=== PATIENT | female | born 1990 | race Caucasian/White ===

== ENCOUNTER 2017-05-13 01:57 | Inpatient (IN) ==
[2017-05-13] MEDS ORDERED: ONDANSETRON 4 MG/2 ML VIAL IV PRN (02:14)
[2017-05-13] MEDS ORDERED: MEPERIDINE 50 MG/1 ML VIAL IM PRN (02:14)
[2017-05-13] MEDS ORDERED: BUTORPHANOL 2 MG/ML VIAL IV PRN (02:14)
[2017-05-13] MEDS ORDERED: CITRIC ACID/SODIUM CITRATE 30 ML UDCUP PO ONE (02:16)
[2017-05-13] MEDS ORDERED: ePHEDrine 50 MG/ML AMP IV PRN (02:18)
[2017-05-13] MEDS ORDERED: OXYTOCIN/LR 20 UNIT/1,000 ML BAG IV ONE ×2 (02:19→09:11)
[2017-05-13] MEDS ORDERED: AMPICILLIN INJ 2,000 MG in SODIUM CHLORIDE 0.9% 50 ML IV ONE (02:20)
[2017-05-13] MEDS ORDERED: FAMOTIDINE 20 MG/2 ML VIAL IV SCH (02:30)
[2017-05-13] MEDS: LACTATED RINGERS 1,000 ML IV SCH ×3 (02:39→04:12)
[2017-05-13 03:26] LABS: Basophils % 0.3 % (0.0-0.8); Eosinophils # 0.1 10*3/uL (0.0-0.87); Eosinophils % 0.6 % (0.00-10.9); Hemoglobin 12.1 GM/DL (12.0-16.0); Immature Granulocytes % 1.1 %; Immature Granulocytes Absolute 0.12 #; Lymphocytes # 1.6 10*3/uL (1.4-4.0); Lymphocytes % 14.8 % (21.3-54.2); Mean Corpuscular HGB Conc 35.6 GM/DL (32-36); Mean Corpuscular Hemoglobin 33 PG (27-34); Mean Corpuscular Volume 92.9 FL (87-102); Mean Platelet Volume 10.8 FL (9.6-12.0); Monocytes # 0.8 10*3/uL (0.11-0.8); Monocytes % 7.3 % (1.7-12.7); Neutrophils # 8.4 10*3/uL (1.4-7.4); Neutrophils % 75.9 % (38.7-73.9); Platelet Count 156 T/CUMM (130-400); Red Blood Count 3.66 MC/CUMM (3.8-5.5); Red Cell Distribution Width 12.9 % (9.3-17.3)
[2017-05-13 03:41] LABS: Albumin 2.5 G/DL (3.4-5.0); Bilirubin,Total 0.5 MG/DL (0.2-1.0); Calcium 8.2 MG/DL (8.5-10.1); Osmolality,Calculated 271.7 MOS/KG (273-304); Potassium 3.6 MMOL/L (3.5-5.1); Total Protein 5.4 G/DL (6.4-8.3)
[2017-05-13] MEDS ORDERED: miSOPROStol 200 MCG TABLET ONE (04:09)
[2017-05-13] MEDS ORDERED: LIDOCAINE 1% 50 ML VIAL ONE (04:09)
[2017-05-13] MEDS ORDERED: METHYLERGONOVINE 0.2 MG/1 ML AMP ONE (04:10)
[2017-05-13] MEDS ORDERED: oxyCODONE/ACETAMINOPHEN 5-325 MG TABLET PO PRN ×2 (05:45)
[2017-05-13] MEDS ORDERED: BENZOCAINE 20%/MENTHOL 0.5% SPRAY 56 GM CAN TOP PRN (05:45)
[2017-05-13] MEDS ORDERED: LANOLIN 50% CREAM 0.3 OZ TUBE TOP PRN (05:45)
[2017-05-13] MEDS ORDERED: ACETAMINOPHEN 325 MG TABLET PO PRN (05:45)
[2017-05-13] MEDS ORDERED: MEASLES/MUMPS/RUBELLA VACCINE 0.5 ML VIAL SUBCUT ONE (05:45)
[2017-05-13] MEDS ORDERED: HYDROCORTISONE 2.5% RECTAL CREAM 30 GM TUBE TOP PRN (05:45)
[2017-05-13] MEDS ORDERED: DIPH/TET/ACEL PERT BOOSTER VACCINE 0.5 ML VIAL IM ONE (05:45)
[2017-05-13] MEDS ORDERED: BISACODYL 10 MG SUPP RECTAL PRN (05:45)
[2017-05-13] MEDS ORDERED: RHO(D) IMMUNE GLOBULIN 300 MCG SYRINGE IM ONE (05:45)
[2017-05-13] MEDS ORDERED: WITCH HAZEL PADS 100/JAR TOP PRN (05:45)
[2017-05-13] MEDS ORDERED: AMPICILLIN INJ 2,000 MG in SODIUM CHLORIDE 0.9% 50 ML IV SCH (08:30)
[2017-05-13] MEDS: IBUPROFEN 800 MG TABLET PO PRN (15:49)
[2017-05-13] MEDS: DOCUSATE SODIUM 100 MG CAPSULE PO SCH (20:20)
[2017-05-13] MEDS ORDERED: MAGNESIUM HYDROXIDE SUSP 30 ML UDCUP PO PRN (20:23)
[2017-05-14 06:48] LABS: Basophils % 0.2 % (0.0-0.8); Eosinophils # 0.1 10*3/uL (0.0-0.87); Eosinophils % 1.3 % (0.00-10.9); Hematocrit 34.3 VOL% (35.7-47.0); Hemoglobin 11.8 GM/DL (12.0-16.0); Immature Granulocytes % 1.5 %; Immature Granulocytes Absolute 0.15 #; Lymphocytes % 19.2 % (21.3-54.2); Mean Corpuscular HGB Conc 34.4 GM/DL (32-36); Mean Corpuscular Hemoglobin 33 PG (27-34); Mean Corpuscular Volume 94.8 FL (87-102); Mean Platelet Volume 10.4 FL (9.6-12.0); Monocytes # 0.8 10*3/uL (0.11-0.8); Monocytes % 8.1 % (1.7-12.7); Neutrophils # 7.1 10*3/uL (1.4-7.4); Neutrophils % 69.7 % (38.7-73.9); Platelet Count 151 T/CUMM (130-400); Red Blood Count 3.62 MC/CUMM (3.8-5.5); Red Cell Distribution Width 13.1 % (9.3-17.3); White Blood Count 10.2 T/CUMM (4-12)
[2017-05-14] MEDS ORDERED: DIBUCAINE 1% OINT 28 GM TUBE TOP PRN (08:21)
[2017-05-14] MEDS: DOCUSATE SODIUM 100 MG CAPSULE PO SCH ×3 (09:16→22:01)
[2017-05-14] MEDS: LACTATED RINGERS 1,000 ML IV SCH (22:01)
[2017-05-14] MEDS: fentaNYL 2 MCG/ROPIV 0.2% EPID 150 ML EPIDURAL SCH ×2 (22:02)
[2017-05-14] MEDS: IBUPROFEN 800 MG TABLET PO PRN (23:59)
[2017-05-15] MEDS: fentaNYL 2 MCG/ROPIV 0.2% EPID 150 ML EPIDURAL SCH (00:02)
[2017-05-15] MEDS: LACTATED RINGERS 1,000 ML IV SCH (04:51)
[2017-05-15 08:50] VITALS: BP 154/73
[2017-05-15] MEDS: DOCUSATE SODIUM 100 MG CAPSULE PO SCH (10:05)
== END 2017-05-15 12:30 | disposition home or self-care (01) | DRG 775 ==
LOC: N.LDOUT 01:57 → N.LD 02:00 → N.OB 10:16
PROVIDERS: ADMIT Obstetrics & Gynecology; ATTEND Obstetrics & Gynecology

== ENCOUNTER 2019-07-06 23:59 | Inpatient (IN) ==
[2019-07-07] MEDS ORDERED: BUTORPHANOL 1 MG/ML VIAL IV PRN (00:19)
[2019-07-07] MEDS ORDERED: ONDANSETRON 4 MG/2 ML VIAL IV PRN ×2 (00:19→08:48)
[2019-07-07] MEDS ORDERED: MEPERIDINE 25 MG/1 ML VIAL IV PRN (00:19)
[2019-07-07] MEDS ORDERED: LACTATED RINGERS 500 ML IV ONE (00:20)
[2019-07-07] MEDS ORDERED: PROMETHAZINE 25 MG/1 ML VIAL IM ONE (00:20)
[2019-07-07] MEDS ORDERED: LACTATED RINGERS 1,000 ML IV ONE (00:20)
[2019-07-07] MEDS ORDERED: CITRIC ACID/SODIUM CITRATE 30 ML UDCUP PO ONE (00:20)
[2019-07-07] MEDS ORDERED: hydrOXYzine HCL 25 MG/1 ML VIAL IM PRN (00:20)
[2019-07-07] MEDS ORDERED: FAMOTIDINE 20 MG/2 ML VIAL IV ONE (00:20)
[2019-07-07] MEDS ORDERED: diphenhydrAMINE 50 MG/1 ML VIAL IV PRN ×2 (00:20)
[2019-07-07] MEDS ORDERED: NALOXONE 0.4 MG/ML VIAL IV PRN (00:20)
[2019-07-07] MEDS ORDERED: LACTATED RINGERS 1,000 ML IV SCH ×2 (00:30)
[2019-07-07] MEDS ORDERED: fentaNYL 2 MCG/ROPIV 0.2% EPID 100 ML EPIDURAL SCH (00:30)
[2019-07-07] MEDS ORDERED: INFLUENZA VIRUS VACCINE 0.5 ML SYRINGE IM ONE (00:44)
[2019-07-07 01:08] LABS: Basophils % 0.4 % (0.0-0.8); Eosinophils # 0.1 10*3/uL (0.0-0.87); Eosinophils % 1.1 % (0.00-10.9); Hematocrit 36.8 VOL% (35.7-47.0); Hemoglobin 12.5 GM/DL (12.0-16.0); Immature Granulocytes Absolute 0.22 #; Lymphocytes # 2.7 10*3/uL (1.4-4.0); Lymphocytes % 24.3 % (21.3-54.2); Mean Corpuscular Volume 95.8 FL (87-102); Monocytes % 7.8 % (1.7-12.7); Neutrophils % 64.4 % (38.7-73.9); Platelet Count 188 T/CUMM (130-400); Red Blood Count 3.84 MC/CUMM (3.8-5.5); Red Cell Distribution Width 13.1 % (9.3-17.3)
[2019-07-07] MEDS: LACTATED RINGERS 1,000 ML IV SCH ×2 (01:38→03:33)
[2019-07-07 03:19] LABS: Apearance,Urine CLEAR (Clear); Bilirubin,Urine Negative (Negative); Blood, Urine Negative (Negative); Glucose,Urine (UA) Negative (Negative); Ketones,Urine 20 mg/dL (Negative); Mucus,Urine Occasional /LPF (Occasional); Nitrite,Urine Negative (Negative); Protein,Urine Negative; RBC,Urine 4 /HPF (0-4); Squamous Epithelial Cell,Urine Occasional /HPF (0-10); Urine Color Yellow (Yellow); WBC,Urine 1 /HPF (0-6)
[2019-07-07] MEDS: ePHEDrine 50 MG/ML AMP IV PRN ×3 (03:29→03:43)
[2019-07-07] MEDS: OXYTOCIN/LR 20 UNIT/1,000 ML BAG IV SCH ×2 (07:02→12:12)
[2019-07-07] MEDS ORDERED: LIDOCAINE 1% 50 ML VIAL ONE (08:25)
[2019-07-07] MEDS ORDERED: METHYLERGONOVINE 0.2 MG/1 ML AMP ONE (08:26)
[2019-07-07] MEDS ORDERED: miSOPROStoL 200 MCG TABLET ONE (08:26)
[2019-07-07] MEDS ORDERED: METHYLERGONOVINE 0.2 MG/1 ML AMP IM ONE (08:46)
[2019-07-07] MEDS ORDERED: LANOLIN 50% CREAM 0.3 OZ TUBE TOP PRN (08:48)
[2019-07-07] MEDS ORDERED: BISACODYL 10 MG SUPP RECTAL PRN (08:48)
[2019-07-07] MEDS ORDERED: OXYTOCIN/LR 20 UNIT/1,000 ML BAG IV ONE (08:48)
[2019-07-07] MEDS ORDERED: BENZOCAINE 20%/MENTHOL 0.5% SPRAY 56 GM CAN TOP PRN (08:48)
[2019-07-07] MEDS ORDERED: HYDROCORTISONE 2.5% RECTAL CREAM 30 GM TUBE TOP PRN (08:48)
[2019-07-07] MEDS ORDERED: ACETAMINOPHEN 325 MG TABLET PO PRN (08:48)
[2019-07-07] MEDS ORDERED: oxyCODONE/ACETAMINOPHEN 5-325 MG TABLET PO PRN ×2 (08:48)
[2019-07-07] MEDS ORDERED: WITCH HAZEL PADS 100/JAR TOP PRN (08:48)
[2019-07-07] MEDS ORDERED: MEASLES/MUMPS/RUBELLA VACCINE 0.5 ML VIAL SUBCUT ONE (08:48)
[2019-07-07] MEDS ORDERED: RHO(D) IMMUNE GLOBULIN 300 MCG SYRINGE IM ONE (08:48)
[2019-07-07] MEDS ORDERED: DIPH/TET/ACEL PERT BOOSTER VACCINE 0.5 ML VIAL IM ONE (08:48)
[2019-07-07] MEDS: IBUPROFEN 800 MG TABLET PO PRN ×2 (10:42→19:26)
[2019-07-07] MEDS ORDERED: ONDANSETRON 4 MG TABLET PO PRN (19:24)
[2019-07-07] MEDS: DOCUSATE SODIUM 100 MG CAPSULE PO SCH ×2 (19:27→21:02)
[2019-07-08] MEDS: IBUPROFEN 800 MG TABLET PO PRN ×2 (05:09→19:58)
[2019-07-08 06:39] LABS: Basophils % 0.4 % (0.0-0.8); Eosinophils # 0.2 10*3/uL (0.0-0.87); Eosinophils % 1.7 % (0.00-10.9); Hematocrit 30.5 VOL% (35.7-47.0); Hemoglobin 10.2 GM/DL (12.0-16.0); Immature Granulocytes % 1.8 %; Immature Granulocytes Absolute 0.19 #; Lymphocytes # 2.3 10*3/uL (1.4-4.0); Lymphocytes % 22.3 % (21.3-54.2); Mean Corpuscular HGB Conc 33.4 GM/DL (32-36); Mean Corpuscular Volume 98.4 FL (87-102); Mean Platelet Volume 10.4 FL (9.6-12.0); Monocytes % 7.7 % (1.7-12.7); Neutrophils % 66.1 % (38.7-73.9); Platelet Count 138 T/CUMM (130-400); Red Cell Distribution Width 13.2 % (9.3-17.3); White Blood Count 10.4 T/CUMM (4-12)
[2019-07-08] MEDS: DOCUSATE SODIUM 100 MG CAPSULE PO SCH ×3 (08:44→20:17)
[2019-07-08] MEDS ORDERED: ALUMINUM/MAGNES/SIMETH MAX STR 30 ML UDCUP PO PRN (19:50)
[2019-07-09 07:23] VITALS: BP 107/71
[2019-07-09] MEDS: DOCUSATE SODIUM 100 MG CAPSULE PO SCH (11:21)
== END 2019-07-09 11:08 | disposition home or self-care (01) | DRG 807 ==
LOC: N.LDOUT 23:59 → N.LD 07-07 → N.OB 07-07 11:55
PROVIDERS: ADMIT Specialist; ATTEND Specialist